=== PATIENT | male | born 1985 | race African-American/Black ===

== ENCOUNTER 2024-06-12 15:50 | Emergency (ER) | payer OTHER, SELFPAY ==
[2024-06-12 15:54] VITALS: BP 152/94; PULSE 77; RESP 16; TEMP 36.6; O2SAT 100
--- NOTE | 2024-06-12 19:36 | PC.NURSE ---
Patient called for in triage area; no answer
--- NOTE | 2024-06-12 19:57 | PC.NURSE ---
Patient again called for; no answer
== END 2024-06-12 20:50 | disposition left against medical advice (07) ==
DX: R07.9 Chest pain, unspecified (principal)
CPT/HCPCS: 99199

== ENCOUNTER 2024-06-13 01:22 | Emergency (ER) | payer SELFPAY ==
--- NOTE | ~2024-06-13 | XR_ITS ---
Portable chest x-ray Comparison: 10/10/2014 Clinical History: Chest pain Findings: Lungs are clear, without focal consolidation or pleural effusion. Cardiomediastinal silho uette is stable. Bones and soft tissues are unremarkable. Impression: Normal chest. Reviewed, dictated and finalized at [facility]. HYSICAL PROSPECTOR Impression: Normal chest.
[2024-06-13 01:30] VITALS: BP 130/98; PULSE 99; RESP 14; TEMP 37.2; O2SAT 98
--- NOTE | 2024-06-13 01:36 | ECG_ITS ---
Test Date: 2024-06-13 01:40:25 Measurements Intervals [place] Rate: 96 P: 60 UT: 204 QRS: 56 QRSD: 92 T: 48 QT: 324 QTc: 410 Interpretive Statements SINUS RHYTHM ST ELEVATION IN DIFFUSE LEADS- PROBABLY EARLY REPOLARIZATION BORDERLINE ECG No previous ECG available for comparison Electronically Signed On 06-13-2024 05:23:07 CASH APPLICATIONS ANALYST by Jd Contreras D.O.
[2024-06-13 01:45] VITALS: O2SAT 100
[2024-06-13 01:46] LABS: Basophils Percent Auto 0.4 % (0.2-1.2); Eosinophils Percent Auto 0.2 % (0-4.4); Hemoglobin 14.2 g/dL (14.0-18.0); Lymphocytes Absolute Auto 1.41 K/mm3 (0.9-3.2); Lymphocytes Percent Auto 26.1 % (18.3-44.2); Mean Corpuscular HGB Conc 34.6 g/dl (32-36); Mean Corpuscular Hemoglobin 29.6 pg (26-34); Mean Corpuscular Volume 85.6 fl (80-100); Mean Platelet Volume 10.2 fl (7.4-10.4); Monocytes Absolute Auto 0.4 K/mm3 (0.1-0.6); Monocytes Percent Auto 7.4 % (2.6-8.5); Neutrophils Absolute Auto 3.6 K/mm3 (1.3-6.7); Neutrophils Percent Auto 65.9 % (45.5-73.1); Platelet Count Result 236 k/mm3 (150-375); Red Blood Count 4.79 M/mm3 (4.6-6.20); Red Cell Distribution Width 12.2 % (11.5-14.5); White Blood Count 5.4 K/mm3 (4.5-10.0)
[2024-06-13 01:58] LABS: Alanine Aminotransferase 17 U/L (6-50); Albumin Level 4.8 g/dL (3.5-5.1); Alkaline Phosphatase 80 U/L (38-126); Anion Gap 13 mmol/L (4-12); Aspartate Amino Transferase 24 U/L (17-59); Bilirubin,Total 0.3 mg/dL (0.2-1.3); Blood Urea Nitrogen 13 mg/dL (9-20); Calcium 9.1 mg/dL (8.4-10.2); Carbon Dioxide 23 mmol/L (22-30); Chloride 106 mmol/L (98-107); Estimated CRCL calculation 95 ml/min; Estimated Glomerular Filt Rate > 60; Glucose 84 mg/dL (65-110); Lipase 140 U/L (23-300); Potassium 3.7 mmol/L (3.4-5.0); Sodium 142 mmol/L (137-145)
[2024-06-13 02:04] LABS: Prothrombin Time 13.9 Seconds (11.1-14.7)
[2024-06-13 02:06] LABS: Partial Thromboplastin Time 26.3 Seconds (22.3-36.8)
[2024-06-13 02:07] LABS: Troponin I < 0.012 ng/mL (0.000-0.034)
--- NOTE | 2024-06-13 02:12 | ED_ITS ---
HPI - Chest Pain General Chief Complaint: Chest Pain Stated Complaint: Chest pain Time Seen by Provider: 06/13/24 01:35 History of Present Illness HPI narrative: Patient is a 38-year-old male who presents to the emergency department this evening complaining of a chest pain and shortness for the past 5 days. Patient was seen then at [facility] and was diagnosed with pneumonia. He was provided with a script for an antibiotic and Tessalon Perles and patient states that he has been taking and has 2 days left of his antibiotics. Patient states that he still feels fatigued, has chills, and chest pain/soreness. Denies any fevers at home. No additional symptoms or concerns at this time. Related Data Allergies Allergy/AdvReac Type Severity Reaction Status Date / Time No Known Drug Allergies Allergy Unknown Unverified 05/04/15 08:24 Review of Systems Review of Systems: All systems are reviewed and are negative unless stated otherwise in the HPI. Exam Narrative: General: Alert, awake, afebrile, in no acute distress. HEENT: PERRL, no rhinorrhea, no post nasal drip, oropharynx clear. Neck: Trachea midline, no JVD, no lymphadenopathy. Cardiovascular: Regular rate and rhythm, no murmurs, rubs or gallops, no peripheral edema. Respiratory: Clear to auscultation bilaterally, no tachypnea, no wheezing, no rhonchi, no rubs, no respiratory distress. Abdomen: Soft, nontender, nondistended, no rebound, no guarding, no peritoneal signs. Musculoskeletal: No joint swelling or deformity, normal muscle tone. Skin: No rashes or petechia, no signs of infection. Psychiatric: Alert and oriented, normal behavior and judgment for situation. Neurological: Alert and oriented to person, place, and time. Follows all commands. No focal deficits, speech is clear and fluent. Course Vital Signs Vital signs: Vital Signs Temperature 98.9 F 06/13/24 01:30 Pulse Rate 99 06/13/24 01:30 Respiratory Rate 14 06/13/24 01:30 Blood Pressure 130/98 H 06/13/24 01:30 Pulse Oximetry 98 06/13/24 01:30 Oxygen Delivery Room Air 06/13/24 01:30 Temperature 98.9 F 06/13/24 01:30 Pulse Rate 99 06/13/24 01:30 Respiratory Rate 14 06/13/24 01:30 Blood Pressure 130/98 H 06/13/24 01:30 Pulse Oximetry 98 06/13/24 01:30 Oxygen Delivery Room Air 06/13/24 01:30 MDM - Chest Pain MDM Narrative Medical decision making narrative: The patient was evaluated by myself in the emergency department. History is obtained from patient who is an independent historian and physical exam was performed. External medical records were reviewed at this time. IV was established and pertinent tests were ordered. EKG was obtained which revealed sinus rhythm at a rate of 96 beats per minute with early repolarization, no evidence of acute ischemia. EKG was independently interpreted by me and is currently pending official cardiology read. Laboratory results obtained including a troponin revealed no acute process. Imaging studies obtained included CXR which was independently interpreted by me revealing no acute cardiopulmonary process, which is pending final radiology interpretation. Differential diagnosis considerations include acute viral syndrome, infectious process such as pneumonia, costochondritis, acute coronary syndrome. Comorbidities impacting this visit include none. I have evaluated and discussed social determinants of health with the patient that could potentially impact subsequent diagnosis and treatment plans. On repeat assessment of the patient, reevaluation revealed that the patient is doing well and is in no acute distress. Patient symptoms have remained stable since he arrived to our emergency department. Repeat vital signs were all reviewed and noted to be stable. Differential diagnosis and treatment plan were discussed with the patient at bedside. Patient agrees with discussion and after shared medical decision making agrees with discharge. All questions were answered to the patient's satisfaction. Patient will follow up with his PCP in 3-5 days. Patient was provided with strict return precautions and instructed to return to the emergency department if any new or worsening symptoms develop. The patient was discharged in stable condition. Lab Data 06/13/24 01:38 06/13/24 01:38 Labs: Lab Results 06/13/24 Range/Units 01:38 WBC 5.4 (4.5-10.0) K/mm3 RBC 4.79 (4.6-6.20) M/mm3 Hgb 14.2 (14.0-18.0) g/dL Hct 41.0 L (42.0-52.0) % MCV 85.6 (80-100) fl MCH 29.6 (26-34) pg MCHC 34.6 (32-36) g/dl RDW 12.2 (11.5-14.5) % Plt Count 236 (150-375) k/mm3 MPV 10.2 (7.4-10.4) fl Immature Gran % (Auto) 0.0 (0-0.5) % Neut % (Auto) 65.9 (45.5-73.1) % Lymph % (Auto) 26.1 (18.3-44.2) % [place] % (Auto) 7.4 (2.6-8.5) % Eos % (Auto) 0.2 (0-4.4) % Baso % (Auto) 0.4 (0.2-1.2) % Lymph # (Auto) 1.41 (0.9-3.2) K/mm3 [place] # (Auto) 0.4 (0.1-0.6) K/mm3 Eos # (Auto) 0.0 (0-0.3) K/mm3 Baso # (Auto) 0.0 (0.0-0.1) K/mm3 Abs Immat Gran (auto) 0.00 (0.00-0.031) K/mm3 Absolute Neuts (auto) 3.6 (1.3-6.7) K/mm3 Absolute Nucleated RBC 0.000 (0.0-0.012) K/mm3 Nucleated RBC % 0.0 (0.0-0.2) % PT 13.9 (11.1-14.7) Seconds INR 1.0 APTT 26.3 (22.3-36.8) Seconds Sodium 142 (137-145) mmol/L Potassium 3.7 (3.4-5.0) mmol/L Chloride 106 (98-107) mmol/L Carbon Dioxide 23 (22-30) mmol/L Anion Gap 13 H (4-12) mmol/L BUN 13 (9-20) mg/dL Creatinine 0.90 (0.7-1.3) mg/dL Estim Creat Clear Calc 95 ml/min Estimated GFR > 60 (59 - ) Glucose 84 (65-110) mg/dL Calcium 9.1 (8.4-10.2) mg/dL Total Bilirubin 0.3 (0.2-1.3) mg/dL AST 24 (17-59) U/L ALT 17 (6-50) U/L Alkaline Phosphatase 80 (38-126) U/L Troponin I < 0.012 (0.000-0.034) ng/mL Total Protein 9.0 H (6.3-8.2) g/dL Albumin 4.8 (3.5-5.1) g/dL Lipase 140 (23-300) U/L Discharge Plan Discharge Clinical Impression: Atypical chest pain, Acute upper respiratory infection Patient Disposition: Home, Self-Care Condition: Stable Instructions: Antibiotic Form, Chest Pain (ED) Additional Instructions: Please follow-up with your family doctor within the next 3-5 days. Return to the emergency department if any new or worsening symptoms develop. Make sure you finish the antibiotic that was prescribed to you. Follow-up/Referrals: Daniel Velázquez MD [Physician] - 3 Days PHYSICIAN,[employer] TEAM [employer]UCK DRIVER [Primary Care Provider] - Stand Alone Forms: Work/School Release IP Time of Disposition: 02:13
== END 2024-06-13 02:40 | disposition home or self-care (01) ==
PROVIDERS: Emergency Provider Emergency Medicine
DX: R07.89 Other chest pain (principal); J06.9 Acute upper respiratory infection, unspecified; Z87.01 Personal history of pneumonia (recurrent); R94.31 Abnormal electrocardiogram [ECG] [EKG]
CPT/HCPCS: 36415; 71045; 80053; 83690; 84484; 85025; 85610; 85730; 93005; 99284